=== PATIENT | female | born 1930 | race Caucasian/White ===

== ENCOUNTER 2016-09-18 09:12 | Inpatient (IN) ==
[2016-09-18 09:35] LABS: MANUAL DIFF NEEDED? NO
[2016-09-18 09:36] LABS: BASO% 0.2 % (0.0-0.8); EOS# 0.05 X1000 (0.0-0.7); EOS% 0.8 % (0.0-10.0); HEMATOCRIT 41.2 % (37.0-47.0); HEMOGLOBIN 13.5 g/dL (12.0-16.0); LYMPH# 2.72 X1000 (1.2-3.4); LYMPH% 41.5 % (20.5-51.1); MCH 29.7 PG (27-31); MCHC 32.8 g/dL (33-37); MCV 90.7 FL (81-99); MONO# 0.47 X1000 (0.11-0.59); MONO% 7.2 % (1.7-9.3); MPV 9.6 FL (7.4-10.4); NEUT% 50.3 % (42.2-75.2); PLT 151 X1000 (130-400); RBC 4.54 XMIL (4.2-5.4)
--- NOTE | 2016-09-18 09:39 | Diag Imaging Result Doc PS360 ---
EXAM: HEAD W/O CONTRAST HISTORY: stroke TECHNIQUE: COMPARISON: 11/28/2015. FINDINGS: There is a large intraventricular hemorrhage. This primarily fills the left lateral ventricle. There may be a tiny parenchymal component in the left parietal lobe. Hemorrhage extends into the third and fourth ventricles. There is atrophy and chronic microvascular ischemic changes. Midline shift from the left to the right of approximately 8 mm. IMPRESSION: Large intraventricular hemorrhage with midline shift from left to the right. Dr. Hand was called in the emergency room at 9:35 AM. Electronically signed by Mauricio Brooks 09/18/2016 9:37 AM
--- NOTE | 2016-09-18 09:42 | Diag Imaging Result Doc PS360 ---
EXAM: CHEST-1 VIEW HISTORY: stroke TECHNIQUE: AP supine COMPARISON: 11/28/2015 FINDINGS: There are multiple surgical clips in the left axilla. There is a left-sided effusion with basilar atelectasis and/or infiltrate. The appearance is somewhat combative the prior exam. There are multiple old right rib fractures. There is moderate scoliosis. IMPRESSION: Stable chest. Electronically signed by Mauricio Brooks 09/18/2016 9:40 AM
--- NOTE | 2016-09-18 09:56 | EKG Report ---
Test Performed on : 09/18/2016 09:41:27 AM Test Reason : stroke Blood Pressure : / mmHG Vent. Rate : 068 BPM Atrial Rate : 068 BPM P-R Int : 242 ms QRS Dur : 078 ms QT Int : 388 ms P-R-T Axes : 083 -80 029 degrees QTc Int : 412 ms Sinus rhythm. with 1st degree AV block. Low voltage QRS Left anterior fascicular block Cannot rule out Anterior infarct (cited on or before 28-NOV-2015) Abnormal ECG When compared with ECG of 28-NOV-2015 09:53, No significant change was found Unconfirmed Result
[2016-09-18 09:58] LABS: INR 0.97 (0.86-1.15); PROTIME 13.2 Seconds (12.1-15.5)
[2016-09-18 09:59] LABS: CALCIUM 9.8 mg/dL (8.8-10.2); POTASSIUM 4.1 mmol/L (3.5-5.1); TOTAL BILIRUBIN 0.6 mg/dL (0.20-1.00); TOTAL PROTEIN 6.7 g/dL (6.3-8.3)
--- NOTE | 2016-09-18 10:02 | PROVIDER DOCUMENTATION ---
This chart was entered by Tika Spencer Scribe, acting as scribe for Rogelio Hand MD. HPI-Neurological Disorder - General Chief Complaint: Stroke-Like Symptoms Stated Complaint: stroke symptoms Time Seen by Provider: 09/18/16 09:31 Source: patient Allergies/Adverse Reactions: Patient Allergies Allergy/AdvReac Type Severity Reaction Status Date / Time No Known Allergies Allergy Verified 05/17/15 20:42 Home Medications: Home Medication List Medication Instructions Recorded Confirmed Last Taken Type Aspirin [Adult Low Dose Aspirin EC] 81 mg PO WLUNCH #100 tablet. 05/18/15 Unknown Rx Atorvastatin Calcium [Lipitor] 10 mg PO HS 05/18/15 05/18/15 05/17/15 20:00 History Carboxymethylcellulose Sodium 3 drop OP TID PRN 05/18/15 05/18/15 Unknown History [Refresh Tears] Cyanocobalamin (Vitamin B-12) 1 ml IM DIRECTED 05/18/15 05/18/15 05/15/15 08: 00 History [Cyanocobalamin Injection] Escitalopram Oxalate [Lexapro] 5 mg PO DAILY 05/18/15 05/18/15 05/17/15 08:00 History Magnesium Oxide 400 mg PO BID 05/18/15 05/18/15 05/17/15 20:00 History Multivitamin [Multi-Vitamin Daily] 1 each PO DAILY 05/18/15 05/18/15 05/17/15 08 :00 History 1 Vit A/Vit C/Vit E/Zinc/Copper 1 each PO BID 05/18/15 05/18/15 05/17/15 20:00 History [Preservision Areds Tablet] 1 - History of Present Illness-Neuro Nature of Presenting Problem: Pt is 86 y/o F presents to the ED with stroke like symptoms. EMS states family was taking Pt back to her room and Pt started to get confused. EMS states family stated hx of TIA. EMS states N and V. EMS states R side weakness. Headache Location: denies: frontal, temporal, occipital, parietal, global Severity: reports: mild Onset/Duration: reports: this morning Timing: reports: still present Context: reports: other (R side weakness and confusion) Character of Altered Mental Status: reports: confused Any recent trauma/injury?: reports: none Character of Deficits: reports: new weakness (R side) New weakness or altered sensation location:: reports: RUE, RLE Cognitive Baseline: alert but confused Gait Baseline: walks without assistance Associated Symptoms: reports: nausea, vomiting, weakness (R side). denies: short of breath, headache, decreased ability to walk or stand, fainting, dizziness, confusion, chest pain, neck/back pain, fatigue, fever/chills, insomnia, loss of consciousness, muscle spasms, numbness in legs/feet, paresthesia, diaphoretic, ringing in ears, seizures, sleepy, slurred speech, tingling in legs/feet, trouble walking, vision changes Similar Symptoms Previously?: No Recently seen or treated by another doctor?: No Review of Systems - Adult - REVIEW OF SYSTEMS - ADULT Constitutional: reports: no symptoms reported Eyes: reports: no symptoms reported Ears, Nose, Mouth & Throat: reports: no symptoms reported Cardiovascular: reports: no symptoms reported Respiratory: reports: no symptoms reported Gastrointestinal: reports: nausea, vomiting. denies: abdominal pain, diarrhea Genitourinary: reports: no symptoms reported Musculoskeletal: reports: muscle weakness (R side weakness). denies: bone pain , joint pain, neck pain Integumentary: reports: no symptoms reported Neurological: denies: dizziness/vertigo, headache/migraines, seizure, syncope Psychiatric: reports: no symptoms reported Endocrine: reports: no symptoms reported Hematologic/Lymphatic: reports: no symptoms reported Allergic/Immunologic: reports: no symptoms reported All Other Systems: Reviewed and Negative Past History - Adult - PAST MEDICAL HISTORY-ADULT Review of Records: reports: Nursing Assessment Review, Medications Reviewed, Social history reviewed & non-contributory. Major Childhood Illnesses: reports: denies history Cardiovascular: reports: denies history Respiratory: reports: denies history Gastrointestinal: reports: denies history Obstetrical/Gynecological: reports: denies history Genitourinary: reports: denies history Musculoskeletal: reports: denies history Neurological: reports: cancer/tumor (brain), speech difficulty Endocrine/Immune: reports: denies history Other Conditions: reports: other (macular degeneration ) - PRIOR SURGERIES/PROCEDURES Surgical/Procedure History: reports: hysterectomy, breast (masectomy left ) - IMMUNIZATION STATUS Childhood Immunizations: See Nurse Assessment Flu Vaccine: See Nurse Assessment - FAMILY HISTORY Family History: reviewed, not pertinent - SOCIAL HISTORY Smoking: denies Substance Use: denies Living Situation: care facility (assisted living) Physical Exam- Neurological - Physical Exam-Neuro Initial Vital Signs Reviewed: Yes General Appearance: alert, no apparent distress Eye Exam: bilateral eye: normal inspection, PERRL, EOMI HENMT: normocephalic/atraumatic, moist mucous membranes Head Injury: no evidence of injury Neck: non-tender, full range of motion, supple, normal inspection Respiratory: chest non-tender, lungs clear, normal breath sounds Cardiovascular: normal peripheral pulses, regular rate, rhythm Abdominal Exam: normal bowel sounds, non tender, soft Lymphatic: no adenopathy Extremity: non-tender. 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 Exam: normal hearing, PERRL Coordination/Gait: abnormal gait Motor/Sensory: pronator drift (R), weak motor strength RUE, weak motor strength RLE Neurologic: grossly normal Integumentary: normal color, normal turgor, warm/dry Psych/Mental Status: normal mood/affect, disoriented x 3 Progress - PLAN OF CARE/RESULTS Progress/Plan/Lab Results: Laboratory Results - last 24 hr 09/18/16 09:00 WBC 6.55 RBC 4.54 Hgb 13.5 Hct 41.2 MCV 90.7 MCH 29.7 MCHC 32.8 L RDW Std Deviation 14.9 H Plt Count 151 MPV 9.6 Immature Gran % (Auto) 0.0 Neut % (Auto) 50.3 Lymph % (Auto) 41.5 Gilchrist % (Auto) 7.2 Eos % (Auto) 0.8 Baso % (Auto) 0.2 Immature Gran # (Auto) 0.00 Neut # (Auto) 3.30 Lymph # (Auto) 2.72 Gilchrist # (Auto) 0.47 Eos # (Auto) 0.05 Baso # (Auto) 0.01 Orders Category Date Time Status Cardiac Monitoring DIRECTED Care 09/18/16 09:13 Active Finger Stick Blood Sugar (ED) DIRECTED Care 09/18/16 09:13 Active Misc. NRSG Communication Order DIRECTED Care 09/18/16 09:13 Active Oxygen Therapy- ED Nursing DIRECTED Care 09/18/16 09:13 Active Saline Loc NOW Care 09/18/16 09:13 Active CHEST-1 VIEW [RAD] Stat Exams 09/18/16 09:13 Completed HEAD W/O CONTRAST [CT] Stat Exams 09/18/16 09:13 Completed CBC WITH ELECTRONIC DIFF [HEME] Stat Lab 09/18/16 09:00 Completed COMPREHENSIVE METABOLIC PANEL [CHEM] Stat Lab 09/18/16 09:[address]IME WITH INR [address] [COAG] Stat Lab 09/18/16 09:[address] [COAG] Stat Lab 09/18/16 09:00 Received TROPONIN T Stat Lab 09/18/16 09:00 [address] DRUG SCREEN [address] Stat Lab 09/18/16 09:13 Uncollected EKG [EKG] Stat Ther 09/18/16 09:13 Draft Result Diagrams: 09/18/16 09:00 - REASSESSMENT Reassessment #1 Time Reassessed: 09:45 (Dr. Hand at bedside with daughter and Dr. Ramos) Status: unchanged (Pt's daughter states Pt is a DNR and does not want her transferred to [place]. Pt's daughter states she wants Pt to stay here and to be admitted here) - EKG 1 Time of EKG reading by physician:: 09:41 EKG Read and Signed by:: Rogelio Hand EKG Interpretation (*Must complete 3 of following elements*): Abnormal (cannot rule out anterior infarct, age undetermined) Rate: 68 Rhythm: sinus rhythm with 1st degree AV block Comments: low voltage QRS; left anterior fascicular block - XRAY 1 XRAY Study: Chest Impression: Normal XRAY Interpretation: stable chest - CT/MRI 1 CT Study: Head Impression: Abnormal CT Results: large intraventricular hemorrhage with midline shift from left to the right - CONSULTS/PCP/HOSPITALIST Notification #1 *Consult/PCP/Hospitalist*: Dr. Cota Time Discussed: 09:39 (Dr. Cota states send files and find out if Pt is full code or not ) Reason/Comments: Dr. Hand consults with Dr. Cota about Pt Consult Disposition: other #2 Consult: Dr. Cota Time Discussed: 09:54 (Dr. Hand informed Dr. Cota that Pt is DNR and will be admitted here at [place] per family. ) Reason/Comments: Dr. Hand consults with Dr. Cota about Pt Consult Disposition: other #3 Consult: Dr. Jacinto Time Discussed: 09:57 Reason/Comments: Dr. Hand consults with Dr. Jacinto about admit of Pt. Consult Disposition: Admit Departure - Departure Time of Disposition Decision: 09:51 DIAGNOSIS: Cerebral hemorrhage Disposition: ADMITTED INPATIENT Certified Medical Emergency: Emergent Condition: Critical Referrals and Follow-Ups: None,PCP [Primary Care Provider] - - Critical Care Note This patient required my direct & personal management of CC.: Yes Total Time (mins): 15 Critical Care Statement: This patient required my direct personal management to treat or rule out processes, the absence of which, could potentiallly result in sudden, clinically significant life or limb threatening deterioration. This chart was documented by the indicated scribe, (Tika Spencer, [place]) and accurately reflects the services I performed and decisions made by me, Rogelio Hand MD, as attested by the provider's signature.
[2016-09-18] MEDS ORDERED: ZOFRAN IV ONE (10:09)
[2016-09-18 11:42] LABS: URINE CULTURE PL NEEDED? NO
[2016-09-18 11:56] LABS: BILIRUBIN URINE NEGATIVE (NEGATIVE); BLOOD URINE NEGATIVE (NEGATIVE); CLARITY SL. CLOUDY (CLEAR); COLOR YELLOW; GLUCOSE URINE NEGATIVE (NEGATIVE); LEUKOCYTES URINE NEGATIVE (NEGATIVE); NITRITE URINE NEGATIVE (NEGATIVE); PROTEIN URINE NEGATIVE (NEGATIVE); SP GRAVITY URINE 1.015; UROBILINOGEN URINE NORMAL
[2016-09-18 12:11] LABS: URINE EPITHELIAL CELLS <10 /HPF (<10); URINE SOURCE CATH
[2016-09-18] MEDS ORDERED: TEARISOL OPH SOLUTION BOTH EYES PRN (14:29)
--- NOTE | 2016-09-18 15:24 | HISTORY AND PHYSICAL ---
PRIMARY CARE PHYSICIAN: Dr. Stephane Ramos CHIEF COMPLAINT: Right-sided weakness and increased confusion that began this a.m. HISTORY OF PRESENTING ILLNESS: This is an 86-year-old female who presents to [facility] ER via EMS after she was at her assisted living facility this morning and was walking back to her room from the dining room eating breakfast when she became weak and had right-sided weakness and was noted to have increased confusion. She was brought to the emergency room. Laboratory data was unremarkable. A head CT was obtained that showed a large intraventricular hemorrhage with midline shift from the left to the right. The ER physician attempted to call [facility], but the family made the decision that they did not want any further treatment done at this time. She is a DNR LEVEL 1, and she was admitted to our Intensive Care Unit. She has become more alert but unable to answer questions appropriately. Most of her answers to any question, she begins counting 4, 5 or 5,6; but she is alert with her eyes open and is able to follow commands with her neurological exam. She is noted to have some mild right-sided weakness with her hand grasp and lower extremity movement. She has passed her bedside swallowing study. She is admitted to the Intensive Care Unit here at [facility] for further evaluation and treatment. 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 Macular degeneration. PAST SURGICAL HISTORY: Hysterectomy and a left mastectomy. FAMILY HISTORY: Noncontributory. SOCIAL HISTORY: She currently resides at [facility] and denies any tobacco, alcohol, or illicit drug use. ALLERGIES: She has no known drug allergies. HOME MEDICATIONS: 1. Aspirin 81 mg p.o. with lunch; that will be held. 2. Lipitor 10 mg p.o. at bedtime. 3. Refresh eye drops p.r.n. will continue. 4. Vitamin B12 injections monthly. We will hold. 5. Lexapro 5 mg p.o. daily. 6. Magnesium oxide 400 mg p.o. b.i.d. 7. Multivitamin daily. 8. PreserVision tablet 1 p.o. b.i.d. LABORATORY DATA: White blood cell count of 6.55, a hemoglobin of 13.5, hematocrit 41.2, platelets 151,000. PT and INR of 13.2 and 0.97. Sodium 139, potassium 4.1, chloride 102 , CO2 of 27. BUN of 19, creatinine 0.9, glucose 146. Troponin less than 0.010. Urinalysis was negative. Chest x-ray showed a left-sided effusion with basilar atelectasis and/or infiltrate. Multiple old right rib fractures and moderate scoliosis. EKG showed sinus rhythm with a first-degree AV block at 68. Head CT showed a large intraventricular hemorrhage with midline shift from the left to the light. REVIEW OF SYSTEMS: Unable to obtain from patient. PHYSICAL EXAMINATION: VITAL SIGNS: On arrival, she had a temperature of 97.4 degrees, pulse 58, respirations 19, blood pressure was 151/84, saturating 99% on room air. GENERAL: This is an 86-year-old female who is lying in the bed, unable to answer questions appropriately. Information has been obtained from family at bedside and her medical record. HEENT: Normocephalic and atraumatic. Pupils are equal, round, reactive to light. The extraocular movements are intact. Oropharynx and nares are clear. NECK: Supple. LUNGS: Clear to auscultation bilaterally with equal lung expansion and chest wall movement. HEART: With regular rate and rhythm. No murmurs, rubs, or gallops. ABDOMEN: Soft, nontender, nondistended. Bowel sounds are present x4 quadrants. EXTREMITIES: There is no clubbing, cyanosis, or edema. NEUROLOGICAL: The cranial nerves 2-12 appear grossly intact, but there is right -sided weakness noted to upper and lower extremities. ASSESSMENT: 1. An acute intraventricular hemorrhage cerebrovascular accident. 2. Hypertension. PLAN: She was admitted to the Intensive Care Unit at [facility], placed on telemetry. An indwelling Trimble catheter. We will continue her home medications. We will place her on a soft diet as she passed her bedside swallowing study by nursing and continued to monitor, and we will recheck labs in the a.m. Pt. is a DNR 1 Dictated by HUSSAIN Roe for Noel Jacinto MD cc: HUSSAIN Roe MD Rodney W. Harney, MD [facility]
[2016-09-18] MEDS ORDERED: CARDIZEM IV PRN (20:59)
[2016-09-18] MEDS ORDERED: MORPHINE IV PRN (21:00)
[2016-09-18] MEDS: LIPITOR PO SCH (21:27)
[2016-09-18] MEDS: OCUVITE LUTEIN & ZEAXANTHIN PO SCH (22:05)
[2016-09-18] MEDS: MAG-OX PO SCH (22:05)
[2016-09-19 06:02] LABS: MANUAL DIFF NEEDED? NO
[2016-09-19 06:05] LABS: BASO% 0.1 % (0.0-0.8); HEMATOCRIT 42.9 % (37.0-47.0); HEMOGLOBIN 13.9 g/dL (12.0-16.0); IMM GRAN# 0.02 X1000 (0.0-0.04); IMM GRAN% 0.2 % (0.0-0.5); LYMPH# 1.78 X1000 (1.2-3.4); LYMPH% 21.2 % (20.5-51.1); MCH 29.3 PG (27-31); MCHC 32.4 g/dL (33-37); MCV 90.5 FL (81-99); MONO# 0.57 X1000 (0.11-0.59); MONO% 6.8 % (1.7-9.3); MPV 9.2 FL (7.4-10.4); NEUT% 71.7 % (42.2-75.2); PLT 151 X1000 (130-400); RBC 4.74 XMIL (4.2-5.4)
[2016-09-19 06:29] LABS: AGAP 16; BUN 13 mg/dL (8-22); CHLORIDE 102 mmol/L (98-107); COSMO 285; POTASSIUM 3.5 mmol/L (3.5-5.1); SODIUM 142 mmol/L (136-145); TCO2 24 mmol/L (25-35)
--- NOTE | 2016-09-19 07:55 | PROGRESS NOTE ---
DATE: 09/19/2016 SUBJECTIVE: Patient actually had a remarkable night. She slept well. This morning, she is much more awake, still disoriented at times. OBJECTIVE: Vital Signs: Temp 94 degrees, pulse 85, respiratory rate 18, BP 150/78, sat 94% on 4 L. General: Patient is awake, alert. She is currently in no respiratory distress. She is confused. HEENT: Normocephalic. Neck: Supple. CV: Regular rate. Chest: Clear. Abdomen: Soft. Neuro: Unable to assess. Patient is confused. She does respond occasionally to questions but she is confused at other times. Does not typically follow commands. DIAGNOSTIC DATA: CBC and CMP normal. Head CT from yesterday demonstrated large ventricular hemorrhage with midline shift from left to right. ASSESSMENT: 1. Acute interventricular hemorrhage with cerebral vascular accident. Her mental status actually is improving. 2. Hypertension. Blood pressures are stable at 150/78. 3. Do Not Resuscitate. PLAN: We will transition patient to the floor. Get Physical Therapy involved and continue to follow. Discussed with the daughter the gravity of the situation. She understands. Hopefully Ms. Walter will continue to improve and can transition back to her residence at [place]. I began discussion with the daughter regarding hospice, rehab, etc. cc: Noel Jacinto MD
[2016-09-19] MEDS: OCUVITE LUTEIN & ZEAXANTHIN PO SCH ×2 (08:34→20:34)
[2016-09-19] MEDS: MAG-OX PO SCH ×2 (08:34→20:34)
[2016-09-19] MEDS: LEXAPRO PO SCH (11:51)
[2016-09-19] MEDS: THERA M PLUS PO SCH (11:51)
[2016-09-19] MEDS: LIPITOR PO SCH (20:35)
[2016-09-20] MEDS: LEXAPRO PO SCH (08:51)
[2016-09-20] MEDS: MAG-OX PO SCH ×2 (08:51→20:51)
[2016-09-20] MEDS: THERA M PLUS PO SCH (08:52)
[2016-09-20] MEDS: OCUVITE LUTEIN & ZEAXANTHIN PO SCH ×2 (08:52→20:51)
[2016-09-20] MEDS: NORVASC PO SCH (12:22)
--- NOTE | 2016-09-20 13:02 | PROGRESS NOTE ---
DATE: 09/20/2016 SUBJECTIVE: The patient does awaken. No other major complaints. OBJECTIVE: Vital Signs: Blood pressure 155/90, heart rate of 81, respiratory rate 18, temperature 97.4 degrees, 98% on 2 L. Cardiovascular: Regular rate and rhythm. Pulmonary: Bilateral breath sounds. Clear to auscultation. Neurologic: Nonfocal. She appears to be lethargic but she does open her eyes. She does look around. LABORATORY DATA: No labs today. PROBLEM LIST: 1. Intraventricular hemorrhage, hemorrhagic cerebrovascular accident. She is clinically stable. Her mental status is a little bit better but I am not sure if she is going to be doing very well. I would strongly consider hospice in this situation. We will follow. 2. Hypertension. We will continue to keep as normotensive as possible since we are really not doing any aggressive medical therapy. 3. Disposition pending the rest of her workup, may consider giving her some mannitol just to reduce intracerebral pressure but I get a sense the family does not really want to be very aggressive at all. The family was not available to talk to today. cc: Inocencio Beltran MD
[2016-09-20] MEDS ORDERED: ZOFRAN IV PRN (13:46)
[2016-09-20] MEDS: LIPITOR PO SCH (20:51)
[2016-09-21 07:11] LABS: HEMATOCRIT 45.9 % (37.0-47.0); HEMOGLOBIN 14.7 g/dL (12.0-16.0); MCH 28.9 PG (27-31); MCV 90.4 FL (81-99); MPV 9.7 FL (7.4-10.4); RBC 5.08 XMIL (4.2-5.4)
[2016-09-21 07:34] LABS: CALCIUM 10.9 mg/dL (8.8-10.2); POTASSIUM 3.9 mmol/L (3.5-5.1)
[2016-09-21] MEDS: LEXAPRO PO SCH (09:04)
[2016-09-21] MEDS: MAG-OX PO SCH (09:05)
[2016-09-21] MEDS: THERA M PLUS PO SCH (09:05)
[2016-09-21] MEDS: OCUVITE LUTEIN & ZEAXANTHIN PO SCH (09:05)
[2016-09-21] MEDS: NORVASC PO SCH (09:05)
[2016-09-21] MEDS ORDERED: NS 1,000 ML IV SCH (11:36)
[2016-09-21 14:28] VITALS: BP 160/88
--- NOTE | 2016-09-21 14:58 | PROGRESS NOTE ---
DATE: 09/21/2016 This is advance care planning note. Discussed with family about goals of care on Monserrat Walter. With her poor neurological recovery from her massive interventricular hemorrhage/intracerebral stroke, family is anticipating comfort care measures. Would prefer comfort care measures, no further aggressive care. We are getting hospice involved. Patient is already DNR 1. cc: Inocencio Beltran MD
--- NOTE | 2016-09-21 14:58 | PROGRESS NOTE ---
DATE: 09/21/2016 SUBJECTIVE: The patient is sleeping. Apparently she sleeps most of the day. She does wake up. She does recognize family members but she is not eating or drinking. OBJECTIVE: Vital signs: Blood pressure 160/88, heart rate of 86, respiratory rate 16, temperature 98.9 degrees, 98% on 2 L. Cardiovascular: Regular rate and rhythm. Pulmonary: Bilateral breath sounds. Clear to auscultation. GI: Soft, nontender, nondistended. Bowel sounds are positive. LABORATORY DATA: BUN and creatinine is 28 and 0.9. Calcium 10.9. CBC looked okay. PROBLEM LIST: Interventricular hemorrhage secondary to intercerebral stroke. Clinically the patient is stable however her neurological function has not really recovered. She is not eating or drinking. She is not participating in any of her self-care. I do not know how well she is going to do. We have not been aggressive in management per the family's request. At this point, I think her rehab able state is very limited. The family that is present today is from [place]. They are not the local family which I think is the power of health care attorney but they are all in agreement with pursuing comfort care measures either at the assisted living or inpatient. At this point I think patient is going to show a slow, steady, progressive decline and she will not be able to feed and take care of herself without total care. The family is not interested in hyper alimentation or alternative alimentation such as a tube feed. Apparently this is per the patient's wishes. She is already a DNR. We will get hospice involved for evaluation for comfort care measures either as an outpatient or inpatient and will follow along. For the time being I have started some fluids, although I anticipate stopping those if she is completely converted to comfort care measures. cc: Inocencio Beltran MD
--- NOTE | 2016-10-25 22:41 | DISCHARGE SUMMARY ---
ADMISSION DATE: 09/18/2016 DISCHARGE DATE: 09/21/2016 DISCHARGE DIAGNOSES: 1. Interventricular hemorrhagic stroke. 2. Hypertension. HOSPITAL COURSE: Briefly this is an 86-year-old female admitted on the for confusion. Please see H and P. She had a very large IVH interventricular hemorrhagic stroke. She was made DNR. Comfort measures were pursued. Dr. Jacinto managed the patient initially. We had further discussions on the about poor outcomes clinically short term and intermodal dispatcher and we transitioned the patient to hospice care. She was transitioned to hospice care on the with further management. I think she ended up being transitioned on the and then on the . Family was aware of poor prognosis, understood, there were multiple family members. Dr. Ramos who was aware the case and visited the patient regularly during her hospital course. TIME SPENT: 32 minute discharge. cc: MD Dr. Richard Pardo
== END 2016-09-21 19:38 | disposition hospice, home (50) ==
LOC: P.ED 09:12 → P.ICU 10:09 → SUATTDRO 10:09 → P.MEDSURG 09-19 09:18
PROVIDERS: ATTEND Internal Medicine

== ENCOUNTER 2016-09-21 19:42 | Inpatient (IN) ==
[2016-09-22] MEDS ORDERED: TYLENOL PO PRN (15:32)
[2016-09-22] MEDS ORDERED: RISPERDAL M-TAB PO PRN (15:32)
[2016-09-22] MEDS ORDERED: ZOFRAN IV PRN (15:33)
--- NOTE | 2016-09-22 16:44 | PROGRESS NOTE ---
DATE: 09/22/2016 SUBJECTIVE: The patient's eyes are open but she is not really communicating otherwise. OBJECTIVE: Vital signs: Blood pressure 161/91, heart rate of 74, respiratory 18, temperature 97.8 degrees, 97% on 2 L. Cardiovascular: Regular rate and rhythm. Pulmonary: Bilateral breath sounds. Clear to auscultation. GI: Soft, nontender, nondistended. Bowel sounds are positive. LABORATORY DATA: None. PROBLEM LIST: Interventricular hemorrhage presumed acute hemorrhagic stroke, cerebrovascular accident. We will continue supportive care. Patient did wake up somewhat but she is not able to care for herself or is not eating. Family decided they did not want to be aggressive further and pursue feeding tube so we will continue comfort measures. She has been converted to inpatient hospice. We will continue comfort measures as tolerated. Family aware of course. cc: Inocencio Beltran MD
--- NOTE | 2016-09-23 13:59 | PROGRESS NOTE ---
DATE: 09/23/2016 SUBJECTIVE: The patient is lying in bed with her eyes closed. She does open her eyes to name called and then doze back off. OBJECTIVE: Vital Signs: Blood pressure is 166/80, with a heart rate of 79, respiration is 18, temperature 98.6 degrees, with O2 saturations of 94% on 2 L nasal cannula. Cardiovascular: Regular rate and rhythm. S1 and S2 appreciated. Pulmonary: Breath sounds are clear with no increased work of breathing noted. Gastrointestinal: Soft, nondistended, with bowel sounds in all 4 quadrants. LABS: None. PROBLEM LIST: Interventricular hemorrhage secondary to acute hemorrhagic stroke, cerebrovascular accident. We will continue with supportive care with [facility] following with the patient. Dictated by HUSSAIN Carvjaal for Inocencio Beltran MD cc: HUSSAIN Carvajal MD
--- NOTE | 2016-09-24 14:20 | PROGRESS NOTE ---
DATE: 09/24/2016 SUBJECTIVE: The patient seems more awake. She is more responsive today. I do not know how much she is taking in; it looks like yesterday she consumed 50% of her meal. OBJECTIVE: Cardiovascular: Regular rate and rhythm. Pulmonary: Bilateral breath sounds. GI: Soft, nontender. LABORATORY DATA: Unremarkable or none. PROBLEM LIST: Intraventricular hemorrhage, acute hemorrhagic cerebrovascular accident. She is improving somewhat. At this point she is a hospice patient. Again, not sure if she is able to take in enough calories to meet her needs, but we will follow. We may need to discuss with the family that this may be a more prolonged situation, and that she may end up requiring hospice with the assisted living. We will continue to monitor. The patient appears comfortable. cc: Inocencio Beltran MD
--- NOTE | 2016-09-25 12:57 | PROGRESS NOTE ---
DATE: 09/25/2016 SUBJECTIVE: Patient is more awake today. She is oriented to person and family. She has no complaints. OBJECTIVE: Cardiovascular: Regular rate and rhythm. S1, S2 appreciated. Pulmonary: Breath sounds are clear. No increased work of breathing noted. Gastrointestinal: Abdomen is soft, nontender, nondistended. Bowel sounds in all 4 quadrants. LABS: There are no new labs. PROBLEM LIST: Intraventricular hemorrhage, acute hemorrhagic cerebrovascular accident. She is improving somewhat. She is a hospice patient. We will continue to monitor and continue within current regimen. Dictated by HUSSAIN Carvajal for Inocencio Beltran MD cc: HUSSAIN Carvajal MD pt examined, agree with above APENOT MTDD
[2016-09-25] MEDS: ATIVAN IV PRN (21:08)
[2016-09-26] MEDS: ROXANOL CONC. LIQUID PO PRN ×4 (08:04→20:39)
[2016-09-26] MEDS: ATIVAN IV PRN ×2 (11:29→16:56)
[2016-09-26] MEDS ORDERED: ATIVAN IV SCH (12:15)
[2016-09-26] MEDS ORDERED: TRANSDERM-SCOP TD SCH (12:15)
--- NOTE | 2016-09-26 12:38 | PROGRESS NOTE ---
DATE: 09/26/2016 SUBJECTIVE: Patient more agitated today, and she is having more breathing difficulty. Family is very concerned about her eating. They were concerned about choking, so she is n.p.o. now. OBJECTIVE: Blood pressure 160/84, heart rate of 87, respiratory rate 19, temperature 98.5 degrees, O2 is 97% on 2 L. Cardiovascular: Regular rate and rhythm. Pulmonary: Bilateral breath sounds. Clear to auscultation. GI: Soft, nontender, nondistended. PROBLEM LIST: 1. Interventricular hemorrhage. 2. Hemorrhagic stroke. 3. Mental status is getting a little worse now. She appears to be more agitated. I am going to schedule some Ativan IV and, with concern over possible secretions, add some scopolamine and follow clinically. Updated the family on her current situation. She started hospice on 09/21/2016. cc: Inocencio Beltran MD
[2016-09-26] MEDS ORDERED: LORAZEPAM ORAL CONCENTRATE PO PRN (17:58)
[2016-09-26] MEDS: LORAZEPAM ORAL CONCENTRATE SCH (18:42)
[2016-09-27] MEDS: LORAZEPAM ORAL CONCENTRATE SCH ×3 (02:56→17:35)
[2016-09-27 07:23] VITALS: BP 75/42
[2016-09-27] MEDS ORDERED: BLISTEX MEDICATED BERRY LIP BALM TOP PRN (08:30)
[2016-09-27] MEDS: ROXANOL CONC. LIQUID PO PRN ×5 (09:51→17:35)
--- NOTE | 2016-09-27 11:04 | PROGRESS NOTE ---
DATE: 09/27/2016 SUBJECTIVE: The patient is unresponsive. She is having agonal respirations about 6-8 a minute with blood pressures in the 70s. Family is at bedside. OBJECTIVE: Vital Signs: Blood pressure is 70 systolic with respirations as stated above, 6--8. Cardiovascular: Regular rate and rhythm. S1, S2 appreciated. Pulmonary: Breath sounds are clear. Diminished in the bases. Respirations are agonal. Gastrointestinal: Abdomen is soft and nondistended. PROBLEM LIST: 1. Intraventricular hemorrhage. 2. Hemorrhagic stroke. PLAN: We will continue with comfort measures for the patient. Family is at bedside. Dictated by HUSSAIN Carvajal for Inocencio Beltran MD cc: HUSSAIN Carvajal MD pt examined, agree with above APENOT MTDD
[2016-09-27] MEDS ORDERED: ATROPINE 1% OPHTH SOLN SL PRN (12:13)
[2016-09-27] MEDS ORDERED: ATROPINE 1 % OPHTH SOLN SL PRN (13:05)
== END 2016-09-27 18:53 | disposition expired ==
LOC: P.MEDSURG 19:42
PROVIDERS: ADMIT Internal Medicine; ATTEND Internal Medicine